=== PATIENT | female | born 1950 | race Caucasian/White ===

== ENCOUNTER 2024-08-31 08:06 | Day surgery (SDC) | payer OTHER ==
[~2024-08-31] VITALS: Ht 160 cm; Wt 72.7 kg
[~2024-08-31 08:06] MED LIST: PROPOFOL 1% 20 ML VIAL IVP ONE; SODIUM CHLORIDE 0.9% 1,000 ML ONE
[2024-08-31] MEDS ORDERED: APIX5TAB PO (08:23)
[2024-08-31] MEDS ORDERED: BUME1TAB50 PO (08:23)
[2024-08-31] MEDS ORDERED: CARV-165 PO (08:23)
[2024-08-31] MEDS ORDERED: SACU1TAB PO (08:23)
[2024-08-31] MEDS ORDERED: SPIR-37 PO (08:23)
[2024-08-31] MEDS ORDERED: DAPA5TAB PO (08:23)
[2024-08-31] MEDS ORDERED: METF-1211 PO (08:23)
[2024-08-31] MEDS ORDERED: ATOR20TA PO (08:23)
[2024-08-31] MEDS: SODIUM CHLORIDE 0.9% 1,000 ML IV ONE (09:09)
[2024-08-31] MEDS ORDERED: OXYGEN THERAPY IH SCH (10:30)
== END 2024-08-31 11:45 | disposition home or self-care (01) ==
LOC: SURGERY 08:06
PROVIDERS: ATTEND Specialist
DX: Z12.11 Encounter for screening for malignant neoplasm of colon (principal); K52.89 Other specified noninfective gastroenteritis and colitis; I10 Essential (primary) hypertension; I48.91 Unspecified atrial fibrillation; E11.9 Type 2 diabetes mellitus without complications; Z90.710 Acquired absence of both cervix and uterus; F17.210 Nicotine dependence, cigarettes, uncomplicated; Z86.14 Personal history of Methicillin resistant Staphylococcus aureus infection; Z95.0 Presence of cardiac pacemaker; Z79.899 Other long term (current) drug therapy
CPT/HCPCS: 45385; 45380; 93005; 88305; C1769; J2704; J7030